=== PATIENT | female | born 1935 | race Caucasian/White ===

== ENCOUNTER 2017-08-27 05:25 | Day surgery (SDC) | payer OTHER ==
[2017-08-24 14:43] VITALS: BMI 27.4
[2017-08-27] MEDS ORDERED: ONDANSETRON 4 MG/2 ML VIAL IVPUSH PRN (11:20)
[2017-08-27] MEDS ORDERED: PROMETHAZINE HCL 25 MG/1 ML VIAL IVPUSH PRN (11:20)
[2017-08-27] MEDS ORDERED: LACTATED RINGERS SOLUTION 1,000 ML IV SCH (11:30)
[2017-08-27] MEDS ORDERED: MIDAZOLAM HCL 2 MG/2 ML SINGLE DOSE VIAL ONE (11:47)
[2017-08-27] MEDS ORDERED: LIDOCAINE HCL 1%, 10 MG/ML (20ML VIAL) ONE (11:47)
[2017-08-27] MEDS ORDERED: SODIUM CHLORIDE 0.9% P/F 10 ML VIAL IJ ONE (11:48)
[2017-08-27] MEDS ORDERED: ceFAZolin SODIUM 1 GM VIAL ONE (11:48)
[2017-08-27] MEDS ORDERED: LIDOCAINE HCL/PF 2% SDV 5ML VIAL ONE (12:04)
[2017-08-27] MEDS ORDERED: GLYCOPYRROLATE 0.2 MG/1 ML VIAL ONE (12:08)
[2017-08-27] MEDS ORDERED: ceFAZolin SODIUM 1 GM VIAL IVPB ONE (12:09)
[2017-08-27] MEDS ORDERED: LIDOCAINE HCL 1%, 10 MG/ML (20ML VIAL) NR ONE (12:25)
[2017-08-27] MEDS ORDERED: KETOROLAC TROMETHAMINE 30 MG/1 ML VIAL ONE (12:31)
[2017-08-27] MEDS ORDERED: BACITRACIN 15 GM TUBE TOPICAL OINTMENT ONE (12:33)
[2017-08-27] MEDS ORDERED: BACITRACIN 15 GM TUBE TOPICAL OINTMENT TP ONE (12:34)
--- NOTE | 2017-08-27 13:10 | OP ---
Operative Note - Note: Operative Date: 08/27/17 Pre-Operative Diagnosis: left calf hematoma Operation: evacuation of left calf hematoma, with pulse lavage irrigation. Findings: hematoma Post-Operative Diagnosis: Same as Pre-op Surgeon: Ousmane Springer Anesthesia: Fractional Estimated Blood Loss (mls): 20 Operative Report Dictated: Yes
--- NOTE | 2017-08-27 13:12 | HP ---
Admitting History and Physical - Admission Chief Complaint: left calf hematoma after fall with cook. Seen in [facility] and booked for OR for evacuation of hematoma. Limitations to Obtaining History: No Limitations - Advance Directives Advance Directives: Yes: Health Care Proxy - Smoking History Smoking history: Never smoked Have you smoked in the past 12 months: No - Alcohol/Substance Use Hx Alcohol Use: No Home Medications - Allergies Allergies/Adverse Reactions: Allergies Allergy/AdvReac Type Severity Reaction Status Date / Time aspirin Allergy Verified 08/24/17 14:25 acetaminophen [From Percocet] AdvReac Verified 08/24/17 14:25 codeine AdvReac Verified 08/24/17 14:25 oxycodone HCl [From Percocet] AdvReac Verified 08/24/17 14:25 eggs Allergy Unknown Uncoded 08/24/17 14:25 - Home Medications Home Medications: Ambulatory Orders Clopidogrel Bisulfate [Plavix] 75 mg PO DAILY 08/27/17 Levothyroxine [Synthroid -] 125 mcg PO DAILY 08/27/17 Metoprolol Succinate [Toprol Xl -] 50 mg PO DAILY 08/27/17 Multivitamin,Ther and Minerals [Vitamin and Minerals] 1 each PO DAILY 08/27/17 Omeprazole 40 mg PO DAILY 08/27/17 Pyridostigmine [Mestinon] 60 mg PO TID 08/27/17 Review of Systems - Review of Systems Constitutional: reports: No Symptoms Eyes: reports: No Symptoms HENT: reports: No Symptoms Neck: reports: No Symptoms Cardiovascular: reports: No Symptoms Respiratory: reports: No Symptoms Gastrointestinal: reports: No Symptoms Genitourinary: reports: No Symptoms Musculoskeletal: reports: No Symptoms Integumentary: reports: No Symptoms Neurological: reports: No Symptoms Endocrine: reports: No Symptoms Physical Examination Vital Signs: Vital Signs Temperature 97.9 F 08/27/17 11:13 Pulse Rate 48 L 08/27/17 11:13 Respiratory Rate 16 08/27/17 11:13 Blood Pressure 107/54 08/27/17 11:13 O2 Sat by Pulse Oximetry (%) 95 08/27/17 11:13 Constitutional: Yes: Well Nourished, No Distress, Calm Eyes: Yes: WNL, Conjunctiva Clear, EOM Intact HENT: Yes: WNL, Atraumatic, Normocephalic Neck: Yes: WNL, Supple, Trachea Midline Cardiovascular: Yes: WNL, Regular Rate and Rhythm Respiratory: Yes: WNL, Regular, CTA Bilaterally Gastrointestinal: Yes: WNL, Normal Bowel Sounds Musculoskeletal: Yes: WNL Extremities: Yes: WNL, Other (left calf open laceration) Edema: No Integumentary: Yes: WNL Neurological: Yes: WNL, Alert, Oriented ...Motor Strength: WNL Psychiatric: Yes: WNL Problem List - Problems (1) Hematoma of leg Code(s): S80.10XA - CONTUSION OF UNSPECIFIED LOWER LEG, INITIAL ENCOUNTER Assessment/Plan left calf hematoma 1. For evacuation today
[2017-08-27 13:49] VITALS: PULSE 50
[2017-08-27 14:10] VITALS: BP 101/47; TEMP 98.2
--- NOTE | 2017-08-29 10:51 | OP ---
DATE OF OPERATION: 08/27/2017 PREOPERATIVE DIAGNOSIS: Left calf trauma with hematoma. POSTOPERATIVE DIAGNOSIS: Left calf trauma with hematoma. PROCEDURE: Evacuation of left calf trauma with pulse lavage. SURGEON: Ousmane Marquez MD ANESTHESIA: Fractional. BLOOD LOSS: 20 mL. INDICATIONS: The patient is an 82-year-old female who had fallen down at home 1 week prior, and when she fell down, she had trauma from her cane, and she had a giant laceration of her left calf. She went to the ER where they gave the patient antibiotics, and the patient was sent home and [facility]. Upon examination, there was a giant laceration with hematoma in the left calf, and it was decided that it would need to be evacuated. Patient came into ambulatory surgery. Patient was consented for the procedure understanding all risks, benefits, and alternatives and was then taken to the operating room. PROCEDURE IN DETAIL: Once in the operating suite, she was placed on the operating table in the supine manner, and the area of the left lower extremity was prepped and draped in the sterile surgical manner. We then went ahead, and through the open laceration, we were able to remove all of the hematoma and squeeze all the hematoma out of the calf. We then used a pulse lavage pulse train operations manager, and we were able to pulse irrigate the entire wound. We then were able to bring the 2 lacerated edges together, and using navdeep, we were able to staple the site closed. At this point, the area was wet and dried. Bacitracin was placed, Xeroform was placed, and Kerlix was placed. The patient tolerated the procedure with no complications. Patient transferred to PACU in stable condition. Total blood loss 20 mL. OUSMANE MARQUEZ DO NP/[id number]
== END 2017-08-27 15:35 | disposition home or self-care (01) ==
LOC: JASU-SURG 05:25
PROVIDERS: ATTEND Surgery Vascular Surgery
PROC: 0JDP0ZZ Extraction of Left Lower Leg Subcutaneous Tissue and Fascia, Open Approach (ICD-10-PCS; 2017-08-27)
PROC: 0Y9J0ZZ Drainage of Left Lower Leg, Open Approach (ICD-10-PCS; principal; 2017-08-27 12:30)
DX: S80.12XA Contusion of left lower leg, initial encounter (principal); W22.8XXA Striking against or struck by other objects, initial encounter; Y93.89 Activity, other specified; Y92.89 Other specified places as the place of occurrence of the external cause
CPT/HCPCS: 94760

== ENCOUNTER 2018-09-03 08:46 | Day surgery (SDC) | payer OTHER | END 2018-09-03 12:00 | disposition home or self-care (01) | LOC: JASU-SURG 08:46 ==

== ENCOUNTER 2018-10-01 08:21 | Day surgery (SDC) | payer OTHER ==
[2018-09-30 08:24] VITALS: BMI 27.9
[2018-10-01] MEDS ORDERED: CIPROFLOXACIN HCL 0.3% OPHTH 2.5ML BOTTLE ONE (08:32)
[2018-10-01] MEDS ORDERED: CYCLOPENTOLATE HCL 1% OPHTH SOLN 2 ML BOTTLE ONE (08:32)
[2018-10-01] MEDS ORDERED: TROPICAMIDE 1% OPHTH SOLN 15 ML BOTTLE ONE (08:33)
[2018-10-01] MEDS ORDERED: PHENYLEPHRINE 2.5% OPHTH SOLN 15 ML BOTTLE ONE (08:33)
[2018-10-01] MEDS ORDERED: FLURBIPROFEN 0.03% OPHTH SOLN 2.5 ML BOTTLE ONE (08:33)
[2018-10-01 08:51] VITALS: TEMP 97.5
[2018-10-01] MEDS ORDERED: FLURBIPROFEN 0.03% OPHTH SOLN 2.5 ML BOTTLE OP SCH (09:00)
[2018-10-01] MEDS ORDERED: CYCLOPENTOLATE HCL 1% OPHTH SOLN 2 ML BOTTLE OP SCH (09:00)
[2018-10-01] MEDS ORDERED: PHENYLEPHRINE 2.5% OPHTH SOLN 15 ML BOTTLE OP SCH (09:00)
[2018-10-01] MEDS ORDERED: CIPROFLOXACIN HCL 0.3% OPHTH 2.5ML BOTTLE OP SCH (09:00)
[2018-10-01] MEDS ORDERED: TROPICAMIDE 1% OPHTH SOLN 15 ML BOTTLE OP SCH (09:00)
[2018-10-01] MEDS ORDERED: ACETAMINOPHEN 325 MG TABLET (FP) PO PRN (09:36)
[2018-10-01] MEDS ORDERED: ONDANSETRON 4 MG/2 ML VIAL IVPUSH PRN (09:36)
[2018-10-01] MEDS ORDERED: MIDAZOLAM HCL 2 MG/2 ML SINGLE DOSE VIAL ONE (09:36)
[2018-10-01] MEDS ORDERED: LIDOCAINE HCL 4% TOPICAL SOLN (50 ML/BOTTLE) TP ONE (10:04)
[2018-10-01] MEDS ORDERED: POVIDONE-IODINE 5% OPHTHALMIC PREP 30 ML SOLUTION OS ONE (10:05)
[2018-10-01] MEDS ORDERED: LIDOCAINE HCL 1% PRESERVATIVE FREE - 30ML VIAL IO ONE (10:13)
[2018-10-01] MEDS ORDERED: BSS (NA/CA/MG/K) BALANCED SALT SOLUTION OPHTH SOLN 15 ML BOTTLE OS ONE (10:13)
[2018-10-01] MEDS ORDERED: CHONDROITIN SU A/HYALUR SOD 1 KIT IO ONE (10:13)
[2018-10-01] MEDS ORDERED: EPINEPHrine/PF 1 MG/1 ML (1:1,000) AMPULE SQ ONE (10:17)
[2018-10-01 11:31] VITALS: BP 120/47; PULSE 64
--- NOTE | 2018-10-07 21:44 | SPEC ---
DATE OF OPERATION: 10/01/2018 PREOPERATIVE DIAGNOSIS: Cataract, left eye. POSTOPERATIVE DIAGNOSIS: Cataract, left eye. OPERATION: Planned phacoemulsification with posterior chamber lens implantation, left eye, model [id number], 22.50 diopters. SURGEON: Yvonne Birmingham M.D. ORDER PROCESSING MANAGER: None. ANESTHESIA: Topical. COMPLICATIONS: None. PROCEDURE: The patient was taken to the operating room and anesthesia began with intravenous fluids and sedation. The patient then received topical anesthesia on the left eye. The patient was prepped and draped in the usual manner for sterile ophthalmic surgery. A self-sealing stab incision was made at the 9:00 and 5:00 positions. Viscoat was inserted into the anterior chamber. Using a 2.65 mm keratome, the anterior chamber was entered temporally. A 360-degree continuous capsulorrhexis was then performed. The nucleus was dislocated with hydrodissection. The nucleus was then removed from the eye in an uncomplicated fashion with the posterior capsule remaining intact. Irrigation and aspiration removed the remaining cortex from the eye. A posterior chamber lens was inserted into the bag and well centered. At this time, the remaining Provisc and Viscoat were removed from the eye. The wound was checked multiple times and nicely self-sealing. Stromal hydration was performed with balanced salt solution. The patient completed the procedure in an uncomplicated fashion and went to the ambulatory unit in stable condition. YVONNE BIRMINGHAM M.D. ANGELICA/[id number]
== END 2018-10-01 11:45 | disposition home or self-care (01) ==
LOC: JASU-SURG 08:21
PROVIDERS: ATTEND Ophthalmology
PROC: 08RK3JZ Replacement of Left Lens with Synthetic Substitute, Percutaneous Approach (ICD-10-PCS; principal; 2018-10-01 10:00)
DX: H26.9 Unspecified cataract (principal)